=== PATIENT | female | born 2005 | race American Indian/Alaskan Native ===

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

== ENCOUNTER 2024-07-04 00:50 | Emergency (ER) | payer MEDICAID, OTHER ==
[2024-07-04 01:08] VITALS: BP 138/87; PULSE 76
[2024-07-04] MEDS: Acetaminophen/Codeine 300-30 MG Tab PO ONE (01:34)
== END 2024-07-04 01:40 | disposition home or self-care (01) ==
LOC: VM.ED 00:50
DX: K08.89 Other specified disorders of teeth and supporting structures (principal); Z88.1 Allergy status to other antibiotic agents
CPT/HCPCS: 99282; A9270; 99283